=== PATIENT | female | born 1985 | race Caucasian/White ===

== ENCOUNTER 2020-11-02 12:38 | Emergency (ER) | payer BC ==
[~2020-11-02] VITALS: Ht 170.2 cm; Wt 68.2 kg
[2020-11-02 14:38] VITALS: BP 150/104
[2020-11-02 15:27] LABS: BASOPHILS % (AUTO) 0 % (0-10); EOSINOPHILS % (AUTO) 0 % (0-10); HEMATOCRIT 43 % (35-52); HEMOGLOBIN 14.6 G/DL (11.5-16.0); LYMPHOCYTES # (AUTO) 1.4 X 10^3 (1.0-4.0); LYMPHOCYTES % (AUTO) 20 % (12-44); MEAN CORPUSCULAR HEMOGLOBIN 31 PG (25-34); MEAN CORPUSCULAR HGB CONC 34 G/DL (32-36); MEAN CORPUSCULAR VOLUME 90 FL (80-99); MEAN PLATELET VOLUME 9.7 FL (7.4-10.4); MONOCYTES # (AUTO) 0.5 X 10^3 (0.0-1.0); MONOCYTES % (AUTO) 7 % (0-12); NEUTROPHILS # (AUTO) 5.1 X 10^3 (1.8-7.8); NEUTROPHILS % (AUTO) 73 % (42-75); PLATELET COUNT 379 10^3/uL (130-400)
[2020-11-02 15:28] LABS: PROTHROMBIN TIME PATIENT 13.3 SEC (12.2-14.7)
[2020-11-02 15:29] LABS: ALANINE AMINOTRANSFERASE 20 U/L (0-55); ALKALINE PHOSPHATASE 71 U/L (40-136); BILIRUBIN,TOTAL 1.3 MG/DL (0.1-1.0); BUN/CREATININE RATIO 10; CARBON DIOXIDE 23 MMOL/L (21-32); CHLORIDE 105 MMOL/L (98-107); CREATININE SERUM 0.94 MG/DL (0.60-1.30); GFR ESTIMATED > 60; GLUCOSE 103 MG/DL (70-105); MAGNESIUM 2.2 MG/DL (1.6-2.4); POTASSIUM 3.8 MMOL/L (3.6-5.0); SODIUM 139 MMOL/L (135-145)
[2020-11-02 15:30] LABS: ALBUMIN 4.7 GM/DL (3.2-4.5); CALCIUM 9.5 MG/DL (8.5-10.1)
--- NOTE | 2020-11-05 13:42 | Diagnostic Imaging Report ---
PROCEDURE: CT angiography of the chest with contrast. TECHNIQUE: Multiple contiguous axial images were obtained through the chest after uneventful bolus administration of intravenous contrast. 3D reconstructed CTA MIP acquisitions were also performed. Auto Exposure Controls were utilized during the CT exam to meet ALARA standards for radiation dose reduction. INDICATION: Chest pressure, post Covid CORRELATION: None FINDINGS: Heart size is borderline enlarged. No disproportionate right heart strain. Thoracic aortic contour unremarkable. No pericardial effusion. No pulmonary artery filling defect to suggest pulmonary embolism. There are a few scattered areas of wispy groundglass opacities within the left upper and, to a lesser degree, the left lower lobe. The right lung is relatively clear. No sammie lobar consolidation. Very slight pleural nodularity at the posterior left lung. No significant effusion. No pneumothorax. The visualized portions of the upper abdomen are unremarkable. There is bony bridging fusion across the anterior T10-T11 disc space. IMPRESSION: 1. No CTA evidence for pulmonary embolism. 2. A few scattered areas of groundglass opacities in the left lung. While nonspecific, can be seen with Covid 19 infection. Other inflammatory or edematous process is not excluded. Dictated by: Dictated on workstation # [id number]
--- NOTE | 2020-11-05 13:43 | Diagnostic Imaging Report ---
EXAM: Portable chest COMPARISON to prior examination from May [id number]. FINDINGS: When compared to the prior examination, there appear to be some new minimal interstitial opacities at the right base and also laterally within the mid left lung. There is no effusion. There is no pneumothorax. Heart size and mediastinal contours appear appropriate. Pulmonary vascularity appears within normal limits. There is no acute osseous abnormality. IMPRESSION: 1. Subtle but new interstitial opacities at the right lung base and within the mid aspect of the left lung laterally. An interstitial pneumonia would be a primary consideration. Dictated by: Dictated on workstation # [id number]
== END 2020-11-02 14:38 | disposition home or self-care (01) ==
LOC: ER 12:40
DX: R07.89 Other chest pain (principal)
CPT/HCPCS: 36415; 80053; 83735; 83874; 84145; 84484; 84703; 85025; 85610; 85730; 86141; 93041